=== PATIENT | female | born 1970 | race Caucasian/White ===

== ENCOUNTER 2016-10-21 17:50 | Emergency (ER) | payer SELFPAY ==
[~2016-10-21] VITALS: Ht 162.6 cm; Wt 94.9 kg
[~2016-10-21 17:50] MED LIST: AMLO10TA2 PO; HYDR25TA6 PO
[2016-10-21] MEDS ORDERED: ASPIRIN 81 MG TABLET CHEW PO ONE (18:30)
[2016-10-21] MEDS ORDERED: SODIUM CHLORIDE FLUSH 10ML SYR IVF ONE (18:30)
[2016-10-21 18:57] LABS: ASPARTATE AMINO TRANSFERASE 12 U/L (15-37); BLOOD UREA NITROGEN 6 mg/dL (7-18)
[2016-10-21 19:01] LABS: IS PT STATUS REG ER OR PRE ER? YES
[2016-10-21 19:39] VITALS: BP 179/95
[2016-10-21] MEDS ORDERED: ASPIRIN 325 MG TABLET ONE (19:45)
[2016-10-21] MEDS ORDERED: ASPIRIN 81 MG TABLET CHEW ONE (19:46)
== END 2016-10-21 20:42 | disposition home or self-care (01) ==
LOC: ED 20:22
DX: R07.2 Precordial pain (principal); Z91.14 Patient's other noncompliance with medication regimen; I10 Essential (primary) hypertension
CPT/HCPCS: 36415; 71010; 80053; 83880; 84484; 85025; 93005; 99285

== ENCOUNTER 2017-05-07 11:11 | Emergency (ER) | payer OTHER ==
[~2017-05-07] VITALS: Ht 162.6 cm; Wt 97.0 kg
[2017-05-07] MEDS ORDERED: LISI-170 PO (11:22)
[2017-05-07] MEDS ORDERED: FAMOTIDINE 20 MG/2 ML IVPush ONE (12:30)
[2017-05-07] MEDS ORDERED: methylPREDNISolone SOD SUCC 125 MG/2 ML IVPush ONE (12:30)
[2017-05-07 13:15] VITALS: BP 154/78
== END 2017-05-07 13:20 | disposition home or self-care (01) ==
LOC: EDBD 11:11 → MERGE 13:11 → ED 13:11
DX: T78.3XXA Angioneurotic edema, initial encounter (principal); T46.4X5A Adverse effect of angiotensin-converting-enzyme inhibitors, initial encounter; J38.4 Edema of larynx; I10 Essential (primary) hypertension
CPT/HCPCS: 96374; 96375; 99284; J2930; S0028